=== PATIENT | female | born 1985 | race Two or more races ===

== ENCOUNTER 2017-05-13 16:13 | Emergency (ER) | payer SELFPAY ==
[2017-05-13 17:34] LABS: URINE HCG POC HCG NEGATIVE (Negative)
[2017-05-13] MEDS ORDERED: CONTRAST GIVEN MC ×2 (17:45)
[2017-05-13] MEDS: IOHEXOL 300 MG/ML 100ML VIAL. IV ×2 (17:58)
[2017-05-14 07:50] LABS: NEGATIVE OBC STREP NEG; POSITIVE OBC STREP POS
== END 2017-05-13 18:56 | disposition home or self-care (01) ==
LOC: ER 18:56
DX: R07.0 Pain in throat (principal)
CPT/HCPCS: 70491; 81025; 87070; 87880; 99285-25; Q9967

== ENCOUNTER → 2017-06-01 | Day surgery (SDC) | payer SELFPAY ==
[~2017-06-01] MED LIST: LIDOCAINE 1% PF 2 ML VIAL. ID; LIDOCAINE 2% 100 MG/5 ML SYRINGE.; MORPHINE SULFATE 2 MG/ML DISP.SYRIN. IV; ONDANSETRON PF 4 MG/2 ML VIAL. IV; PROCHLORPERAZINE 10 MG/2 ML VIAL. IV; PROPOFOL 20 ML IV; fentaNYL PF VIAL 100 MCG/2 ML VIAL IV
[2017-06-01] MEDS: IV RINGERS,LACTATED 1000ML 1,000 ML IV (06:32)
[2017-06-01 07:26] LABS: NEG OBC UR NEG; POS OBC UR POS; U PREG PATIENT NEGATIVE (NEG)
== END | disposition home or self-care (01) ==
LOC: ENDOS 05:53
DX: K22.2 Esophageal obstruction (principal); K29.50 Unspecified chronic gastritis without bleeding; T18.2XXA Foreign body in stomach, initial encounter; K21.9 Gastro-esophageal reflux disease without esophagitis
CPT/HCPCS: 43450; 81025; J2704

== ENCOUNTER → 2017-06-20 | Outpatient (CLI) | payer SELFPAY ==
[2017-06-20] MEDS: SINCALIDE 1.53 MCG in IV NORMAL SALINE 50ML 30 ML IV (10:23)
== END | disposition home or self-care (01) ==
LOC: US 09:03
DX: R14.2 Eructation (principal); R68.81 Early satiety
CPT/HCPCS: 76700; 78226; 96374; 96375; A9537; J2805

== ENCOUNTER 2018-04-17 15:26 | Emergency (ER) | payer SELFPAY ==
[~2018-04-17] VITALS: Ht 157.5 cm; Wt 81.6 kg
[2018-04-17 18:41] LABS: BASO # 0.1 x10^3/uL (0.0-0.2); BASO % 1 % (0-3); EOS # 0.1 x10^3/uL (0.0-0.7); EOS % 1 % (0-3); HEMATOCRIT 37.5 % (36.0-47.0); HEMOGLOBIN 13.1 g/dL (12.0-15.5); LYMPH % 29 % (24-48); MEAN CORPUSCULAR HEMOGLOBIN 31 pg (25-35); MEAN CORPUSCULAR HGB CONC 35 g/dL (31-37); MEAN CORPUSCULAR VOLUME 87 fL (79-100); MONO # 0.6 x10^3/uL (0.0-1.1); MONO % 6 % (0-9); NEUT # 6.6 x10^3uL (1.8-7.7); NEUT % 64 % (31-73); PLATELET COUNT 290 x10^3/uL (140-400); RED CELL DISTRIBUTION WIDTH 13.3 % (11.5-14.5); WHITE BLOOD COUNT 10.4 x10^3/uL (4.0-11.0)
[2018-04-17] MEDS: PROCHLORPERAZINE 10 MG/2 ML VIAL. IV ONE (18:45)
[2018-04-17] MEDS: diphenhydrAMINE 50 MG/ML VIAL IVP ONE (18:45)
[2018-04-17] MEDS: IV NORMAL SALINE 1000ML BAG 1,000 ML IV ONE (18:45)
[2018-04-17 18:53] LABS: CALCIUM 9.6 mg/dL (8.5-10.1); CREATININE 0.7 mg/dL (0.6-1.0); GFR 95.8; POTASSIUM 3.6 mmol/L (3.5-5.1)
[2018-04-17 19:38] LABS: BILIRUBIN,URINE NEGATIVE (NEG); CLARITY,URINE CLEAR; COLOR,URINE YELLOW; NITRITE,URINE NEGATIVE (NEG); PH,URINE 7.5; PROTEIN,URINE NEGATIVE (NEG-TRACE); UROBILINOGEN,URINE 0.2 mg/dL (0.2 mg/dL)
[2018-04-17 19:45] LABS: BACTERIA,URINE FEW /HPF (0-FEW); RBC,URINE 0 /HPF (0-2); SQUAMOUS EPITHELIAL CELL,UR MOD /LPF
[2018-04-17 19:46] LABS: AMORPHOUS SEDIMENT,UR PRESENT /HPF
--- NOTE | 2018-04-17 20:10 | PHYS DOC ---
Past Medical History Past Medical History: No Pertinent History Past Surgical History: No Surgical History Additional Past Surgical Histo: Esophageal Dilitation Alcohol Use: None Drug Use: None Adult General Chief Complaint Chief Complaint: DIZZY/LIGHT HEADED HPI HPI Patient is a 33 year old female who presents with feeling lightheaded. Patient has been ill over the last 5 days. She endorses that she has felt generally lightheaded. Her symptoms are worse when she changes positions. She denies vertiginous symptoms. She has had some chills but no fever. No nausea or vomiting. The patient also complains of diffuse headaches over the same time. Headaches are bitemporal in nature and described to be throbbing. She is not photophobic. No nausea. Denies any severe pain or significant history of migraine headaches. Review of Systems Review of Systems Constitutional: Denies fever or chills Eyes: Denies change in visual acuity HENT: Denies nasal congestion or sore throat Respiratory: Denies cough or shortness of breath Cardiovascular: No additional information not addressed in HPI GI: Denies abdominal pain : Denies dysuria or hematuria Musculoskeletal: Denies back pain Integument: Denies rash or skin lesions Neurologic: Denies headache, no focal neurologic complaints All other systems were reviewed and found to be within normal limits, except as documented in this note. Current Medications Current Medications Current Medications Medications (Trade) Dose Ordered Sig/Nadine Start Time Stop Time Status Last Admin Dose Admin Diphenhydramine HCl (Benadryl) 25 mg 1X ONCE 04/17/18 18:30 04/17/18 18:31 DC 04/17/18 18:45 25 MG Nitrofurantoin Macrocrystals (Macrobid) 100 mg 1X ONCE 04/17/18 20:30 04/17/18 20:31 DC 04/17/18 20:30 100 MG Prochlorperazine Edisylate (Compazine) 10 mg 1X ONCE 04/17/18 18:30 04/17/18 18:31 DC 04/17/18 18:45 10 MG Sodium Chloride 1,000 ml @ 1,000 mls/hr 1X ONCE 04/17/18 18:30 04/17/18 19:29 DC 04/17/18 18:45 1,000 MLS/HR Allergies Allergies Allergies Coded Allergies Type Severity Reaction Last Updated Verified No Known Drug Allergies 06/01/17 No Physical Exam Physical Exam Constitutional: Well developed, well nourished, no acute distress, non-toxic appearance HENT: Normocephalic, atraumatic, bilateral external ears normal, oropharynx moist Eyes: PERRLA, EOMI, conjunctiva normal Neck: Normal range of motion, no tenderness Cardiovascular:Heart rate regular rhythm, no murmur Lungs & Thorax: Bilateral breath sounds clear to auscultation Abdomen: Bowel sounds normal, soft, no tenderness Skin: Warm, dry, no erythema, no rash Back: No tenderness, no CVA tenderness. Extremities: No tenderness Neurologic: Alert and oriented X 3, nonfocal neurologic examination Psychologic: Affect normal Current Patient Data Vital Signs Vital Signs Date Time Temp Pulse Resp B/P (MAP) Pulse Ox O2 Delivery O2 Flow Rate FiO2 04/17/18 20:03 88 16 98 04/17/18 15:36 98.1 185/82 (116) Room Air 98.1 Lab Values Laboratory Tests Test 04/17/18 18:01 04/17/18 18:03 04/17/18 18:27 04/17/18 19:04 Urine Collection Type Unknown Urine Color Yellow Urine Clarity Clear Urine pH 7.5 Urine Specific Jean 1.015 Urine Protein Negative mg/dL (NEG-TRACE) Urine Glucose (UA) Negative mg/dL (NEG) Urine Ketones (Stick) Negative mg/dL (NEG) Urine Blood Negative (NEG) Urine Nitrite Negative (NEG) Urine Bilirubin Negative (NEG) Urine Urobilinogen Dipstick 0.2 mg/dL (0.2 mg/dL) Urine Leukocyte Esterase Moderate (NEG) Urine RBC 0 /HPF (0-2) Urine WBC 11-20 /HPF (0-4) Urine Squamous Epithelial Cells Mod /LPF Urine Amorphous Sediment Present /HPF Urine Bacteria Few /HPF (0-FEW) Urine Mucus Slight /LPF White Blood Count 10.4 x10^3/uL (4.0-11.0) Red Blood Count 4.30 x10^6/uL (3.50-5.40) Hemoglobin 13.1 g/dL (12.0-15.5) Hematocrit 37.5 % (36.0-47.0) Mean Corpuscular Volume 87 fL (79-100) Mean Corpuscular Hemoglobin 31 pg (25-35) Mean Corpuscular Hemoglobin Concent 35 g/dL (31-37) Red Cell Distribution Width 13.3 % (11.5-14.5) Platelet Count 290 x10^3/uL (140-400) Neutrophils (%) (Auto) 64 % (31-73) Lymphocytes (%) (Auto) 29 % (24-48) Monocytes (%) (Auto) 6 % (0-9) Eosinophils (%) (Auto) 1 % (0-3) Basophils (%) (Auto) 1 % (0-3) Neutrophils # (Auto) 6.6 x10^3uL (1.8-7.7) Lymphocytes # (Auto) 3.0 x10^3/uL (1.0-4.8) Monocytes # (Auto) 0.6 x10^3/uL (0.0-1.1) Eosinophils # (Auto) 0.1 x10^3/uL (0.0-0.7) Basophils # (Auto) 0.1 x10^3/uL (0.0-0.2) Sodium Level 139 mmol/L (136-145) Potassium Level 3.6 mmol/L (3.5-5.1) Chloride Level 105 mmol/L (98-107) Carbon Dioxide Level 28 mmol/L (21-32) Anion Gap 6 (6-14) Blood Urea Nitrogen 13 mg/dL (7-20) Creatinine 0.7 mg/dL (0.6-1.0) Estimated GFR (Cockcroft-Gault) 95.8 Glucose Level 91 mg/dL (70-99) Calcium Level 9.6 mg/dL (8.5-10.1) Troponin I Quantitative < 0.017 ng/mL (0.000-0.055) POC Urine HCG, Qualitative Hcg negative (Negative) Influenza Type A Antigen Negative (NEGATIVE) Influenza Type B Antigen Negative (NEGATIVE) Laboratory Tests 04/17/18 18:03 Laboratory Tests 04/17/18 18:03 EKG EKG No STEMI Interpretation Time: 18:15 Radiology/Procedures Radiology/Procedures [] Course & Med Decision Making Course & Med Decision Making Pertinent Labs and Imaging studies reviewed. (See chart for details) Patient is evaluated immediately on arrival to her room. She has a normal neuro exam. She has no nystatin this. Plan is to give some Compazine and Benadryl and will check urinalysis and screen for flu. 20:30: Patient is feeling much improved. She is tolerating fluids by mouth. Her dizziness symptoms are resolved. She was noted to have a urinary tract infection on her lab workup. Otherwise, no acute findings. Patient was given her first dose of Macrobid in the emergency department. She is discharged home and advised to follow-up with her primary care doctor or return to the emergency department for any new or worsening symptoms. All of her questions are answered prior to discharge and she is agreeable to the plan of care. Normal , steady gait to exit. Dragon Disclaimer Dragon Disclaimer This electronic medical record was generated, in whole or in part, using a voice recognition dictation system. Departure Departure Disposition: 01 HOME, SELF-CARE Condition: GOOD Referrals: NO PCP (PCP) Scripts Nitrofurantoin Monohyd/M-Cryst (MACROBID 100 MG CAPSULE) 100 Mg Capsule 1 CAP PO BID, #10 CAP Prov: HANNAH MARTINEZ DO 04/17/18 HANNAH MARTINEZ DO Apr 17, 2018 20:10
[2018-04-17 20:30] LABS: INFLUENZA A PATIENT NEGATIVE (NEGATIVE); INFLUENZA B PATIENT NEGATIVE (NEGATIVE)
[2018-04-17] MEDS: NITROFURANTOIN MONOHYD/M-CRYST 100 MG CAPSULE. PO ONE (20:30)
[2018-04-17] MEDS ORDERED: NITR100C62 PO (20:37)
[2018-04-17 21:03] VITALS: BP 122/72
--- NOTE | 2018-04-18 08:34 | EKG ---
[facility] [address] [place] [address] Test Date: 2018-04-17 Test Time: 18:13:29 Pat Name: KEILA DAVEY Department: Room: Gender: F [employer]: : [id number] Requested By: HANNAH MARTINEZ Order Number: [id number] Reading MD: Measurements Intervals [place] Rate: 78 P: 58 NV: 154 QRS: 45 QRSD: 86 T: 26 QT: 364 QTc: 418 Interpretive Statements SINUS RHYTHM QRS(T) CONTOUR ABNORMALITY CONSIDER ANTEROLATERAL MYOCARDIAL DAMAGE POSSIBLY ABNORMAL ECG RI6.01 No previous ECG available for comparison
== END 2018-04-17 21:05 | disposition home or self-care (01) ==
LOC: ER 15:26
DX: N39.0 Urinary tract infection, site not specified (principal); R42 Dizziness and giddiness; R51 Headache
CPT/HCPCS: 36415; 80048; 81001; 81025; 84484; 85025; 87804; 93005; 96361; 96374; 96375; J0780; J1200; J7030; 99284-25

== ENCOUNTER 2020-08-06 11:59 | Observation (INO) | payer MEDICAID ==
[~2020-08-06 11:59] MED LIST changes: -LIDOCAINE 1% PF 2 ML VIAL. ID; -LIDOCAINE 2% 100 MG/5 ML SYRINGE.; -MORPHINE SULFATE 2 MG/ML DISP.SYRIN. IV; +NITR100C62 PO; -ONDANSETRON PF 4 MG/2 ML VIAL. IV; -PROCHLORPERAZINE 10 MG/2 ML VIAL. IV; -PROPOFOL 20 ML IV; -fentaNYL PF VIAL 100 MCG/2 ML VIAL IV
[2020-08-06 13:25] LABS: HEMATOCRIT 32.3 % (36.0-47.0); HEMOGLOBIN 11.1 g/dL (12.0-15.5); RED BLOOD COUNT 3.76 x10^6/uL (3.50-5.40); RED CELL DISTRIBUTION WIDTH 14.7 % (11.5-14.5); WHITE BLOOD COUNT 9.6 x10^3/uL (4.0-11.0)
[2020-08-06 13:43] LABS: ALBUMIN 2.3 g/dL (3.4-5.0); ALBUMIN/GLOBULIN RATIO 0.6 (1.0-1.7); CALCIUM 8.8 mg/dL (8.5-10.1); CREATININE 0.5 mg/dL (0.6-1.0); GFR 139.6; TOTAL BILIRUBIN 0.4 mg/dL (0.2-1.0); TOTAL PROTEIN 6.4 g/dL (6.4-8.2); URIC ACID 4.1 mg/dL (2.6-6.0)
[2020-08-06 14:11] LABS: CREATININE,RANDOM URINE 37.9 mg/dL (Not Establ.)
[2020-08-29] MEDS ORDERED: OXYC1TAB15 PO (08:53)
[2020-08-29] MEDS ORDERED: FERR325T14 PO (08:53)
[2020-08-29] MEDS ORDERED: IBUP-1060 PO (08:53)
[2020-08-29] MEDS ORDERED: DOCU-109 PO (08:53)
== END 2020-08-06 16:36 | disposition home or self-care (01) ==
LOC: 3 SO LND 11:59
PROVIDERS: ADMIT Obstetrics & Gynecology; ATTEND Obstetrics & Gynecology
DX: O26.893 Other specified pregnancy related conditions, third trimester (principal); R03.0 Elevated blood-pressure reading, without diagnosis of hypertension; Z3A.31 31 weeks gestation of pregnancy
CPT/HCPCS: 36415; 59025; 80053; 82570; 83615; 84156; 84550; 85027; G0378; G0379

== ENCOUNTER 2020-08-21 15:27 | Observation (INO) | payer MEDICAID ==
[~2020-08-21] VITALS: Ht 157.5 cm; Wt 100.0 kg
[2020-08-21 15:56] VITALS: BP 136/65
[2020-08-21] MEDS ORDERED: IV RINGERS,LACTATED 1000ML 1,000 ML IV SCH (16:15)
[2020-08-21] MEDS: BETAMET ACET&NA PHOS 30 MG/5 ML VIAL. IM SCH (16:28)
[2020-08-21 16:44] LABS: CREATININE,RANDOM URINE 44.4 mg/dL (Not Establ.)
[2020-08-21 16:58] LABS: HEMATOCRIT 32.7 % (36.0-47.0); HEMOGLOBIN 11.2 g/dL (12.0-15.5); RED BLOOD COUNT 3.8 x10^6/uL (3.50-5.40); RED CELL DISTRIBUTION WIDTH 15.2 % (11.5-14.5); WHITE BLOOD COUNT 9.1 x10^3/uL (4.0-11.0)
[2020-08-21 17:20] LABS: ALBUMIN 2.4 g/dL (3.4-5.0); ALBUMIN/GLOBULIN RATIO 0.6 (1.0-1.7); CALCIUM 9.1 mg/dL (8.5-10.1); CREATININE 0.5 mg/dL (0.6-1.0); GFR 139.6; POTASSIUM 3.9 mmol/L (3.5-5.1); TOTAL BILIRUBIN 0.2 mg/dL (0.2-1.0); TOTAL PROTEIN 6.5 g/dL (6.4-8.2); URIC ACID 5.1 mg/dL (2.6-6.0)
[2020-08-22 08:34] VITALS: BP 136/65
[2020-08-22] MEDS ORDERED: LABETALOL HCL 200 MG TABLET PO SCH (09:15)
[2020-08-22 09:20] VITALS: BP 159/74
--- NOTE | 2020-08-22 10:05 | PDOC1 ---
[facility] H&P Date of Admission: Date of Admission: August 21, 2020 at 15:27 History of Present Illness: EDC: 10/07/20 LMP: 01/01/20 35y @ 33.3 by L= 11 who presented to clinic yesterday with severe range BPs. This is the third consecutive wk of this occurring. She was sent to L&D for a course of steroids. The pt has been dxed with A1DM but has been sporadically checking her FSBS. The pt is also seeing [facility] for multicystic kidney of the baby. On the level II u/s the baby was found to be in the 94th%ile. PMH: Denies PSH: Denies Meds: PNV All: NKDA OBHx: TSVD x 2, SAB x 2 SH: no tob, no EtOH FH: DM, HTN, CAD Medications: Meds: Current Medications Medications (Trade) Dose Ordered Sig/Nadine Route PRN Reason Start Time Stop Time Status Last Admin Dose Admin Labetalol HCl (Trandate) 400 mg BID PO 08/22/20 09:15 08/22/20 09:20 Allergies: Coded Allergies: No Known Drug Allergies (Unverified , 06/01/17) Physical Exam: Vital Signs: Vital Signs Date Time Temp Pulse Resp B/P (MAP) Pulse Ox O2 Delivery O2 Flow Rate FiO2 08/22/20 09:20 86 159/74 08/21/20 15:56 98.3 18 96 Room Air 98.3 PE: GENERAL: No apparent distress. Alert and oriented. HEENT: Head normocephalic, atraumatic. NECK: Supple LUNGS: Clear to auscultation. HEART: RRR, S1, S2 present, pulses intact ABDOMEN: Soft, positive bowel sounds. EXTREMITIES: No cyanosis or edema. NEUROLOGIC: Normal speech, normal tone PSYCHIATRIC: Normal affect, normal mood. SKIN: No ulceration. FHT: 120's +acels/no decels/mLTV [place]: 10-15 min Labs: Laboratory Tests Test 08/21/20 16:00 08/21/20 16:45 08/21/20 22:07 08/22/20 07:54 Urine Random Creatinine 44.4 mg/dL (Not Establ.) Urine Random Total Protein 35.5 mg/dL (Not Establ.) Urine Protein/Creatinine Ratio 800 mg/g (0-200) H White Blood Count 9.1 x10^3/uL (4.0-11.0) Red Blood Count 3.80 x10^6/uL (3.50-5.40) Hemoglobin 11.2 g/dL (12.0-15.5) L Hematocrit 32.7 % (36.0-47.0) L Mean Corpuscular Volume 86 fL (79-100) Mean Corpuscular Hemoglobin 30 pg (25-35) Mean Corpuscular Hemoglobin Concent 34 g/dL (31-37) Red Cell Distribution Width 15.2 % (11.5-14.5) H Platelet Count 213 x10^3/uL (140-400) Sodium Level 140 mmol/L (136-145) Potassium Level 3.9 mmol/L (3.5-5.1) Chloride Level 106 mmol/L (98-107) Carbon Dioxide Level 22 mmol/L (21-32) Anion Gap 12 (6-14) Blood Urea Nitrogen 10 mg/dL (7-20) Creatinine 0.5 mg/dL (0.6-1.0) L Estimated GFR (Cockcroft-Gault) 139.6 BUN/Creatinine Ratio 20 (6-20) Glucose Level 79 mg/dL (70-99) Uric Acid 5.1 mg/dL (2.6-6.0) Calcium Level 9.1 mg/dL (8.5-10.1) Total Bilirubin 0.2 mg/dL (0.2-1.0) Aspartate Amino Transferase (AST) 15 U/L (15-37) Alanine Aminotransferase (ALT) 16 U/L (14-59) Alkaline Phosphatase 1207 U/L (46-116) H Lactate Dehydrogenase 162 U/L (81-234) Total Protein 6.5 g/dL (6.4-8.2) Albumin 2.4 g/dL (3.4-5.0) L Albumin/Globulin Ratio 0.6 (1.0-1.7) L Glucose (Fingerstick) 173 mg/dL (70-99) H 89 mg/dL (70-99) Laboratory Tests 08/21/20 16:45 Laboratory Tests 08/21/20 16:45 Laboratory Tests 08/21/20 16:45 Assessment & Plan: A/P 35y @ 33.3 by L= 11 1.) Preeclampsia with severe features based on BPs and a random Pr/Cr of 0.8. 3rd wk in a row with severe BP. Sent to L&D for a course of BMTZ. Pt with severe to mild BPs, none requiring tx. Will start Labetalol 400 BID. Discuss[address] case [address] Trae MCCULLOUGH at . Stated typically they keep pt in house until 34wks when they would typically deliver. If the pt declined another option was to manage as outpt with wkly or twice a wk PIH labs. 2.) AMA - on ASA, quad neg 3.) multicystic kidney - s/p level II u/s at , isolated finding (no non- renal anomalies), nml CHELA 4.) EFW 94%ile, repeat growth at scheduled for 09/09/20 5.) A1DM - may benefit from Metformin in am, not checking FSBS regular. Fasting in hospital regular. PP dinner and breakfast elevated. May need Metformin. 6.) TDAP given 08/14/20 7.) Flu given 03/17/20 8.) DPS - consent signed 07/18/20 9.) Fetus cat I FHT, BMTZ #1 @ [id number] SHANTEL DICKERSON MD August 22, 2020 10:05
[2020-08-22] MEDS ORDERED: LABE200T4 PO (12:37)
[2020-08-22] MEDS ORDERED: METF500T16 PO (15:14)
[2020-08-22] MEDS: BETAMET ACET&NA PHOS 30 MG/5 ML VIAL. IM SCH (16:14)
== END 2020-08-22 16:45 | disposition home or self-care (01) ==
LOC: 3 SO LND 15:27 → INTOOBSV 15:27
PROVIDERS: ADMIT Obstetrics & Gynecology; ATTEND Obstetrics & Gynecology
DX: O14.13 Severe pre-eclampsia, third trimester (principal); Z20.822 Contact with and (suspected) exposure to COVID-19; O09.523 Supervision of elderly multigravida, third trimester; O24.420 Gestational diabetes mellitus in childbirth, diet controlled; O26.893 Other specified pregnancy related conditions, third trimester; I25.10 Atherosclerotic heart disease of native coronary artery without angina pectoris; Z3A.33 33 weeks gestation of pregnancy
CPT/HCPCS: 36415; 80053; 82570; 82962; 83615; 84156; 84550; 85027; 87653; 96372; G0378; G0379; J0702; U0003; U0005